=== PATIENT | male | born 1950 | race Caucasian/White ===

== ENCOUNTER 2017-09-10 12:41 | Emergency (ER) | payer MEDICARE ==
[2017-09-10 13:44] VITALS: BP 121/64
--- NOTE | 2017-09-10 13:55 | UC ---
Respiratory Complaint HPI - HPI Summary HPI Summary: COUGH X 1 DAY + FEVER, CHILLS, BODY ACHES, SORE THROAT NO CHEST, PAIN , NO SOB + FOR INFLUENZA - History of Current Complaint Chief Complaint: UCGeneralIllness Stated Complaint: FLU EXPOSURE Time Seen by Provider: 09/10/17 13:43 Hx Obtained From: Patient Onset/Duration: Gradual Onset, Lasting Days - 1, Still Present Timing: Constant Severity Initially: Moderate Severity Currently: Moderate Pain Intensity: 8 Character: Cough: Nonproductive Aggravating Factors: Exertion, Deep Breaths Alleviating Factors: Nothing Associated Signs And Symptoms: Positive: Fever, Chills, URI, Nasal Congestion. Negative: Dyspnea, Wheezing, Hemoptysis, Dizziness, Calf Pain, Calf Swelling, Edema - Allergies/Home Medications Allergies/Adverse Reactions: Allergies Allergy/AdvReac Type Severity Reaction Status Date / Time No Known Allergies Allergy Verified 12/07/13 17:17 Home Medications: Home Medications Amitriptyline HCl 75 mg PO 09/10/17 [History] Aspirin [Aspirin EC] 162 09/10/17 [History] Carvedilol [Coreg] 3.125 mg PO 09/10/17 [History] Furosemide 09/10/17 [History] Lisinopril [Lisinopril 2.5 MG-] 09/10/17 [History] Lovastatin [Altoprev] 10 09/10/17 [History] Spironolactone 09/10/17 [History] Tamsulosin HCl [Flomax] 0.4 mg PO 09/10/17 [History] PMH/Surg Hx/FS Hx/Imm Hx Cardiovascular History: Cardiac Disease, Hypertension, Congestive Heart Failure - Surgical History Surgical History: Yes Surgery Procedure, Year, and Place: right eye - laser surgery for torn retina - lost vision. major back surgery - for ruptured discs. 2 hernia repairs 1985. right knee surgery x2 - Family History Known Family History: Positive: Hypertension - Social History Alcohol Use: Rare Substance Use Type: None Smoking Status (MU): Former Smoker Type: Cigarettes Amount Used/How Often: quit 15 years ago When Did the Patient Quit Smoking/Using Tobacco: 1999 Review of Systems Constitutional: Fever, Chills, Fatigue Skin: Negative Eyes: Negative ENT: Sore Throat, Nasal Discharge Respiratory: Cough Cardiovascular: Negative Gastrointestinal: Negative Genitourinary: Frequency Motor: Negative Neurovascular: Negative Is Patient Immunocompromised?: No All Other Systems Reviewed And Are Negative: Yes Physical Exam Triage Information Reviewed: Yes Appearance: Well-Appearing, No Pain Distress, Well-Nourished Vital Signs: Initial Vital Signs Temp 99.2 F 09/10/17 13:36 Pulse 116 09/10/17 13:36 Resp 22 09/10/17 13:36 BP 121/64 09/10/17 13:36 Pulse Ox 98 09/10/17 13:36 Vital Signs Reviewed: Yes Eyes: Positive: Conjunctiva Clear ENT Exam: Normal ENT: Positive: Normal ENT inspection, Hearing grossly normal, Pharynx normal, Pharyngeal erythema Neck: Positive: Supple, Nontender, No Lymphadenopathy Respiratory: Positive: Chest non-tender, Lungs clear, Normal breath sounds Cardiovascular: Positive: No Murmur, Tachycardia Abdomen Description: Positive: Nontender, Soft. Negative: CVA Tenderness (R), CVA Tenderness (L), Distended, Guarding Bowel Sounds: Positive: Present Skin Exam: Normal UC Diagnostic Evaluation - Laboratory O2 Sat by Pulse Oximetry: 98 Respiratory Course/Dx - Differential Dx/Diagnosis Provider Diagnoses: INFLUENZA Discharge - Discharge Plan Condition: Good Disposition: HOME Prescriptions: Oseltamivir CAP* [Tamiflu CAP*] 75 mg PO BID #10 cap Patient Education Materials: Influenza (ED) Referrals: Avery Mays MD [Primary Care Provider] - 3 Days
== END 2017-09-10 14:01 | disposition home or self-care (01) ==
LOC: UCCORT 12:41
DX: J11.1 Influenza due to unidentified influenza virus with other respiratory manifestations (principal); Z20.828 Contact with and (suspected) exposure to other viral communicable diseases; I51.9 Heart disease, unspecified; I10 Essential (primary) hypertension; I50.9 Heart failure, unspecified; Z87.891 Personal history of nicotine dependence
CPT/HCPCS: 99212; G0463

== ENCOUNTER 2019-04-02 10:45 | Emergency (ER) | payer MEDICARE, OTHER ==
--- NOTE | 2019-04-02 11:16 | ED ---
Complex/Multi-Sys Presentation - HPI Summary HPI Summary: This patient is a 69 year old M presenting to [facility] accompanied by with a chief complaint of right shoulder pain that radiates to right arm and back, weight loss and weakness since November 2018. Patient states that he had a prostate operation in November and ever since he has been feeling off. Patient also states that on 03/30/19 he was seen by Dr. Mays for routine blood work. Patient states that the results came back abnormal as a result Dr. Mays placed him on antibiotics for a UTI. The patient rates the pain 8/10 in severity. Symptoms aggravated by nothing. Symptoms alleviated by Tylenol. Patient reports weakness , melena (due to iron pills) and back pain. Patient denies dizziness, chest pain , nausea, SOB, fever and dysuria. Allergies Allergy/AdvReac Type Severity Reaction Status Date / Time No Known Allergies Allergy Verified 12/07/13 17:17 Home Medications Medication Instructions Recorded Confirmed Type Tamsulosin CAP* [Flomax CAP*] 0.4 mg PO DAILY 08/13/13 09/10/17 History glipiZIDE TAB* [Glucotrol TAB*] 10 mg PO BID 08/13/13 09/10/17 History Multivitamin [Multi-Vitamin] 1 tab PO DAILY 12/07/13 09/10/17 History metFORMIN* [Glucophage*] 500 mg PO DAILY 12/07/13 09/10/17 History Amitriptyline HCl 75 mg PO 09/10/17 History Aspirin [Aspirin EC] 162 09/10/17 History Carvedilol [Coreg] 3.125 mg PO 09/10/17 History Furosemide 09/10/17 History Lisinopril [Lisinopril 2.5 MG-] 09/10/17 History Lovastatin [Altoprev] 10 09/10/17 History Oseltamivir CAP* [Tamiflu CAP*] 75 mg PO BID #10 cap 09/10/17 Rx Spironolactone 09/10/17 History Tamsulosin HCl [Flomax] 0.4 mg PO 09/10/17 History - History Of Current Complaint Chief Complaint: EDWeakness Time Seen by Provider: 04/02/19 10:57 Hx Obtained From: Patient, Family/Bi Data Modeler - Onset/Duration: Lasting Weeks - 03/12/19 Timing: Constant Severity Initially: Mild Character: Sharp Alleviating Factor(s): Tylenol helps with pain. Associated Signs And Symptoms: Positive: Weakness, Back Pain, Melena - due to iron pills. Negative: Dizziness, SOB, Chest Pain, Nausea, Diarrhea, Dysuria, Fever - Allergies/Home Medications Allergies/Adverse Reactions: Allergies Allergy/AdvReac Type Severity Reaction Status Date / Time amoxicillin Allergy Rash Verified 04/02/19 13:58 Home Medications: Home Medications Al Hydrox/Mg Hydrox/Jacqueline BULK* [Mylanta - BULK BOT*] 1 shin PO DAILY PRN [History Confirmed 04/02/19] Carvedilol TAB* [Coreg TAB*] 6.25 mg PO BID 04/02/19 [History Confirmed 04/02/19 ] Ferrous Gluconate TAB* [Fergon TAB*] 325 mg PO BID 04/02/19 [History Confirmed 04/02/19] PMH/Surg Hx/FS Hx/Imm Hx Endocrine/Hematology History: Reports: Hx Diabetes Denies: Hx Thyroid Disease Cardiovascular History: Reports: Hx Hypertension, Other Cardiovascular Problems/ Disorders - RIGHT BUNDLE BLOCK Respiratory History: Denies: Hx Asthma, Hx Chronic Obstructive Pulmonary Disease (COPD) GI History: Denies: Hx Ulcer Neurological History: Reports: Other Neuro Impairments/Disorders - Cancer History Cancer Type, Location and Year: lymphoma - chemo - Surgical History Surgery Procedure, Year, and Place: right eye - laser surgery for torn retina - lost vision. major back surgery - for ruptured discs. 2 hernia repairs 1985. right knee surgery x2 - Immunization History Date of Tetanus Vaccine: <10 yrs Date of Influenza Vaccine: None Infectious Disease History: No Infectious Disease History: Denies: Hx Clostridium Difficile, Hx Hepatitis, Hx Human Immunodeficiency Virus (HIV), Hx of Known/Suspected MRSA, Hx Shingles, Hx Tuberculosis, Traveled Outside the [place] in Last 30 Days - Family History Known Family History: Positive: Hypertension - Social History Alcohol Use: None Hx Substance Use: No Substance Use Type: Reports: None Hx Tobacco Use: Yes Smoking Status (MU): Former Smoker Type: Cigarettes Amount Used/How Often: quit 15 years ago Review of Systems Negative: Fever, Chills Negative: Chest Pain Negative: Shortness Of Breath Positive: Other - melena. Negative: Abdominal Pain, Vomiting, Nausea Positive: Other - back pain, left shoulder pain, left arm pain Positive: Weakness All Other Systems Reviewed And Are Negative: Yes Physical Exam - Summary Physical Exam Summary: Constitutional: Well-developed, Well-nourished, Alert. (-) Distressed Skin: Warm, Dry HENT: Normocephalic; Atraumatic Eyes: Conjunctiva normal Neck: Musculoskeletal ROM normal neck. (-) JVD, (-) Stridor, (-) Tracheal deviation Cardio: Rhythm mildly elevated, rate mildly elevated , Heart sounds normal; Intact distal pulses; The pedal pulses are 2+ and symmetric. Radial pulses are 2 + and symmetric. (-) Murmur Pulmonary/Chest wall: Effort normal. (-) Respiratory distress, (-) Wheezes, (-) Rales Abd: Soft, (-) tenderness, (-) Distension, (-) Guarding, (-) Rebound Musculoskeletal: (-) Edema Lymph: (-) Cervical adenopathy Neuro: Alert, Oriented x3, ptosis on right side Psych: Mood and affect Normal Foot Exam: no wounds Triage Information Reviewed: Yes Vital Signs On Initial Exam: Initial Vitals Temp Pulse Resp BP Pulse Ox 96.5 F 106 20 99/74 98 04/02/19 10:49 04/02/19 10:49 04/02/19 10:49 04/02/19 10:49 04/02/19 10:49 Vital Signs Reviewed: Yes Procedures - Sedation Patient Received Moderate/Deep Sedation with Procedure: No Diagnostics - Vital Signs Vital Signs Temp Pulse Resp BP Pulse Ox 04/02/19 10:49 96.5 F 106 20 99/74 98 - Laboratory Result Diagrams: 04/02/19 11:22 04/02/19 11:22 Lab Statement: Any lab studies that have been ordered have been reviewed, and results considered in the medical decision making process. - Radiology Chest Xray Radiology Interpretation Completed By: Radiologist Summary of Radiographic Findings: Chest Xray reveals, per radiologist, IMPRESSION: Stigmata of obstructive lung disease. No acute pulmonary or cardiac process evident. ED Physician has reviewed this report. - CT Abdomen/Pelvis Ct CT Interpretation Completed By: Radiologist Summary of CT Findings: Abdomen/Pelvis CT reveals, per radiologist,IMPRESSION: ATHEROSCLEROSIS. CHOLELITHIASIS. ENLARGED PROSTATE. NO HYDRONEPHROSIS OR NEPHROLITHIASIS. ED Physician has reviewed this report. - EKG 1326 Cardiac Rate: NL - 99 EKG Rhythm: Sinus Rhythm Summary of EKG Findings: EKG reveals SR with a right bundle branch block. - Additional Comments Diagnostic Additional Comments: Stool Occult Blood- NEGATIVE Complex Multi-Symp Course/Dx Course Of Treatment: This patient is a 69 year old M presenting to [facility] accompanied by with a chief complaint of right shoulder pain that radiates to right arm and back, weight loss and weakness since November 2018. EKG reveals SR with a right bundle branch block. Chest Xray reveals, per radiologist, IMPRESSION: Stigmata of obstructive lung disease. No acute pulmonary or cardiac process evident. ED Physician has reviewed this report. Abdomen/Pelvis CT reveals, per radiologist, IMPRESSION: ATHEROSCLEROSIS. CHOLELITHIASIS. ENLARGED PROSTATE. NO HYDRONEPHROSIS OR NEPHROLITHIASIS. ED Physician has reviewed this report. Stool Occult Blood- NEGATIVE. Test results with no significant abnormalities except for WBC 15.9, RBC 3.12, Hgb 8.9, Hct 28, Plt Count 711, MPV 6.4, INR 1.38, Sodium 134, Potassium 5.2, Chloride 100, BUN 43, Creatinine 1.74, BUN/Creatinine Ratio 24.7, Glucose 226, Globulin 4.5, Albumin/Globulin Ratio 0.7. Dr. Orellana reviewed patients medical reports from [place] it appears that his baseline is 1.6 creatinine. Patients Hgb on march 30, 2019 was 9.3, March 18, 2019 was 10.0, March 13, 2019 was 10.4, December 16, 2018 was 11.3. In the ED course the patient was given Cefepime 2 gm, Ciprofloxacin 400 mg , Piperacillin 3.375 gm. Patient will be admitted to the hospital. Patient is agreeable with this plan. The hospitalist evaluated the patient, however he is refusing admission. His white blood cell count of 16,000, he is tachycardic and hypotensive. He meets sepsis criteria. The source of sepsis is as yet unclear, however the differential includes endocarditis, spinal epidural abscess at some level, possibly cervical given his pain and tingling and numbness in the arms and legs is comes and goes, prostatitis which is unlikely based on physical exam and no prostatic tenderness or bogginess., Bacteremia, urinary tract infection which is partially treated. I did recommended the patient be admitted to the hospital for further evaluation, including MRI scans , echocardiogram. Also empiric antibiotics. I offered also to not admit him and just get the MRIs done in the emergency department, he declined this. He understands that outpatient workup for sepsis is inappropriate, and can lead to disability and . He also understands that the antibiotics I am prescribing are ineffective at treating sepsis.. He is encouraged to return to the emergency department should he change his mind. Hospital-based treatment. He had decision-making capacity at the time of signing AGAINST MEDICAL ADVICE paperwork, and his was present for all discussions. - Diagnoses Provider Diagnoses: Sepsis - Physician Notifications Discussed Care Of Patient With: Marita Heller - Hospitalist Time Discussed With Above Provider: 14:04 Instructed by Provider To: Admit As Inpatient - Dr. Heller accepts patient for admission Discharge ED - Sign-Out/Discharge Documenting (check all that apply): Patient Departure Patient Received Moderate/Deep Sedation with Procedure: No - Discharge Plan Condition: Stable Disposition: AGAINST MEDICAL ADVICE Prescriptions: Ciprofloxacin TAB* [Cipro 500 MG TAB*] 500 mg PO BID #20 tab Referrals: Avery Mays MD [Primary Care Provider] - - Billing Disposition and Condition Condition: STABLE Disposition: Against Medical Advice - Attestation Statements Document Initiated by Scribe: Yes Documenting Scribe: Rachel Loco Provider For Whom Scribe is Documenting (Include Credential): Dr. Michael Orellana MD Scribe Attestation: Rachel Fuentes scribed for Dr. Michael Orelalna MD on 04/21/19 at 1248. Scribe Documentation Reviewed: Yes Provider Attestation: The documentation as recorded by the cameronibRachel tellez accurately reflects the service I personally performed and the decisions made by me, Dr. Michael Orellana MD Status of Scribe Document: Viewed
[2019-04-02 11:59] LABS: Activated Partial Thrombo Time 37.1 seconds (26.0-38.0); Hematocrit 28 % (42-52); Hemoglobin 8.9 g/dL (14.0-18.0); INR 1.38 (0.82-1.09); Mean Corpuscular HGB Conc 32 g/dL (31-36); Mean Corpuscular Hemoglobin 29 pg (27-31); Mean Corpuscular Volume 88 fL (80-94); Mean Platelet Volume 6.4 fL (7.4-10.4); Platelet Count 711 10^3/uL (150-450); Red Blood Count 3.12 10^6 /uL (4.18-5.48); Red Cell Distribution Width 15 % (10-15); White Blood Count 15.9 10^3/uL (3.5-10.8)
[2019-04-02 12:14] LABS: Albumin 3.3 g/dL (3.2-5.2); Albumin/Globulin Ratio 0.7 (1-3); BUN/Creatinine Ratio 24.7 (8-20); Calcium 9.1 mg/dL (8.6-10.3); EGFR African American 47.3 (>60); EGFR Non-African American 39.1 (>60); Globulin 4.5 g/dL (2-4); Potassium 5.2 mmol/L (3.5-5.0); Total Bilirubin 0.7 mg/dL (0.2-1.0); Total Protein 7.8 g/dL (6.4-8.9)
[2019-04-02 12:16] LABS: Troponin I 0.01 ng/mL (<0.04)
[2019-04-02 12:48] LABS: ABS Basophils 0.1 10^3/ul (0-0.2); ABS Eosinophils 0.5 10^3/ul (0-0.6); ABS Lymphocytes 1.3 10^3/ul (1.0-4.8); ABS Monocytes 0.9 10^3/ul (0-0.8); ABS Neutrophils 13.3 10^3/ul (1.5-7.7)
[2019-04-02] MEDS ORDERED: NS 0.9% 1000 ML** 3,000 ML IV ONE (12:50)
[2019-04-02 13:47] LABS: Urine Appearance Clear; Urine Bilirubin Negative (Negative); Urine Blood Negative (Negative); Urine Color Yellow; Urine Glucose Negative (Negative); Urine Ketones Negative (Negative); Urine Nitrite Negative (Negative); Urine Protein Negative (Negative); Urine Specific Gravity 1.013 (1.010-1.030); Urine Urobilinogen Negative (Negative)
[2019-04-02] MEDS: Piperacillin/Tazobac ADVAN(*) 3.375 GM in NS 0.9% 100 ML* 100 ML IVPB ONE ×2 (13:51→13:58)
[2019-04-02] MEDS ORDERED: Cefepime 2 GM in Dextrose(*) 2 GM/50 ML BAG IV ONE (13:54)
[2019-04-02] MEDS ORDERED: Ciprofloxacin 400MG IVPREMIX(* 400 MG/200 ML BAG IVPB ONE (13:55)
[2019-04-02 15:25] LABS: C Reactive Protein 229.84 mg/L (<8.01)
[2019-04-02 15:36] VITALS: BP 105/58
--- NOTE | 2019-04-02 18:03 | CONS ---
CONSULTATION REPORT: DATE OF CONSULT: 04/02/19 ATTENDING PHYSICIAN: Dr. Heller. REASON FOR CONSULT: Right shoulder pain. REQUESTING PROVIDER: Dr. Orellana. 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 For the past 3 weeks, the patient has had progressive pain through bilateral shoulders though worse in the right through the arms and radiating down both his legs with progressive weakness with walking, diagnosed 3 weeks ago with UTI from his primary care physician, was on cefepime for 18 days. He had also had bilateral x-rays of his shoulders that were negative for any acute findings. The pain he described as radiating down both his arms, worse on the right, described as stabbing, no burning or numbness or tingling. Pain was intermittent, not worse at any particular time of the day, noted good relief while using Tylenol about every 4 hours. Denied any headaches, fevers, chills, chest pain, shortness of breath, abdominal pain, nausea, vomiting or issues with bowel or bladder. In the emergency room, the patient received a liter of IV fluids as well as cefepime 2 g IV, ciprofloxacin 400 mg IV and Zosyn 3.375 g IV. PAST MEDICAL HISTORY: Includes diabetes, hypertension, right bundle branch block, lymphoma, BPH, carpal tunnel, bilateral lower extremity neuropathy, herniated T11- T12 disks. PAST SURGICAL HISTORY: Includes L4 partial discectomy and decompressive T11 and T12 surgery, cataract surgery in the left eye, and TURP in 2019. CURRENT MEDICATIONS: He is on: 1. Mylanta 1 suspension p.o. daily p.r.n. 2. Ferrous gluconate 325 mg p.o. b.i.d. 3. Aspirin 81 mg p.o. daily. 4. Spironolactone 25 mg p.o. daily. 5. Furosemide 40 mg p.o. daily. 6. Metformin 2000 mg p.o. b.i.d. 7. Lovastatin 10 mg p.o. daily. 8. Carvedilol 6.25 mg p.o. b.i.d. 9. Lisinopril 2.5 mg p.o. daily. 10. Glipizide 10 mg p.o. b.i.d. 11. Tamsulosin 0.4 mg p.o. daily. 12. Amitriptyline 75 mg p.o. daily. ALLERGIES: To AMOXICILLIN. FAMILY HISTORY: No information volunteered. SOCIAL HISTORY: The patient smoked as a teenager but then quit. Denies any EtOH or other recreational drug use. He is . REVIEW OF SYSTEMS: Constitutional: Again no fevers, no anorexia, no chills. Cardiac: No chest pain. Bilateral lower extremity edema. Respiratory: No cough. No hemoptysis. No shortness of breath. GI: No nausea or vomiting, no diarrhea, no abdominal pain. Neuro: No focal weakness, numbness, and tingling to bilateral lower extremities. 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 ENT: No troubles chewing or swallowing. Musculoskeletal : Radiating pain starting from bilateral shoulders down into hands, worse on the right side. Weakness to bilateral lower extremities. Skin: No rashes, lesions, or open areas appreciated. Psych: No psychosis or anxiety or depression noted. PHYSICAL EXAM: Vital Signs: 111/67, 102 heart rate, 96.5 temp, 19 resps, 94% oxygen on room air. Constitutional: This is an alert, pleasant, well-groomed older gentleman. Eyes: Conjunctivae pink and moist on the left side; right side, right eye is clouded with ptosis. ENT: Oropharynx clear, mucous membranes moist. Lymphatics: No cervical lymphadenopathy noted. Cardiac: S1, S2. Heart rate regular. No murmurs, gallops or rubs appreciated. +1 lower extremity edema bilaterally, nonpitting. Respiratory: No accessory muscle use. Lung sounds are clear to auscultation bilaterally throughout. Abdomen: Soft, nontender, nondistended with normoactive bowel sounds x4. Musculoskeletal : No clubbing or cyanosis. No abnormalities. Full range of motion. No tenderness to the right shoulder or throughout the spine when palpated. Neuro: No focal deficits appreciated. Moves all extremities. Psychiatric: Alert and oriented x3, organized thought process. DIAGNOSTIC STUDIES/LAB DATA: EKG showed sinus rhythm with right bundle branch block. Chest x-ray had stigmata of obstructive lung disease but no acute findings. Abdomen and pelvis CT without contrast showed cholelithiasis with no inflammatory changes, calcified atherosclerotic disease of abdominal aorta, right inguinal hernia and diffuse osteopenia. Labs: White blood cell count 15.9, red blood cell count 3.12, hemoglobin 8.9, hematocrit 28, platelets 711. Absolute neutrophils 13.3, absolute monocytes 0.9. INR 1.38. Chemistries: Sodium 134, potassium 5.2, chloride 100, BUN 43, creatinine 1.74, BUN and creatinine ratio 24.7, glucose 226, lactic acid 2.0 and urine showed no evidence of infection. ASSESSMENT AND PLAN: My impression again, this is a 69-year-old male with a past medical history significant for the hypertension, right bundle branch block , lymphoma and back surgeries, presented to the emergency room today with right shoulder pain as well as progressive weakness. Diagnostic studies showed no evidence of infectious disease, no urinary tract infection found, no clear evidence of source of infection though the patient continues to be tachycardic with low blood pressure and no fevers. The patient decided to not stay for further evaluation, wants to go AMA. Plan for hyperkalemia and low blood pressure is to hold spironolactone and follow up with flat lock machine operator within the next week or two. Recommended the patient to stay overnight for observation resource. Disposition: Recommend admit under observation, though patient wishes to leave AMA. Condition guarded. Thank you for allowing me to participate in the care of this patient. We have given our recommendations to Dr. Orellana. [id number]/[facility] #: [id number] URSULA
--- NOTE | 2019-04-03 08:36 | PN ---
Progress Note - Progress Note Date of Service: 04/02/19 Note: Lyme DUNIA test equivocal Will send for confirmatory testing
== END 2019-04-02 16:15 | disposition left against medical advice (07) ==
LOC: ED 10:45
DX: A41.9 Sepsis, unspecified organism (principal); I70.0 Atherosclerosis of aorta; K80.20 Calculus of gallbladder without cholecystitis without obstruction; E11.9 Type 2 diabetes mellitus without complications; I10 Essential (primary) hypertension; I45.10 Unspecified right bundle-branch block; N40.0 Benign prostatic hyperplasia without lower urinary tract symptoms; Z85.72 Personal history of non-Hodgkin lymphomas; Z87.891 Personal history of nicotine dependence; Z79.82 Long term (current) use of aspirin; Z79.84 Long term (current) use of oral hypoglycemic drugs; Z79.899 Other long term (current) drug therapy; Z88.1 Allergy status to other antibiotic agents
CPT/HCPCS: 36415; 71045; 74176; 80053; 81003; 82272; 83605; 84484; 85025; 85610; 85730; 86140; 86617; 86618; 87040; 93005; 96361; 96365; 96366; 99283; J0744; J2543

== ENCOUNTER 2019-08-15 09:06 | Emergency (ER) | payer OTHER ==
--- OUTSIDE RECORDS SUMMARY | 2019-08-15 09:11 | XMS REPORT | Continuity of Care Document ---
:1950 External Reference #:[id number] Author Name Scott Jane MD (transmitted by agent of provider Amina Slaughter) Address [address] [place] [address] Care Team Providers Name Role Phone Avery Mays MD - Emergency Care Team Information Environmental Services Assistant [phone] Medicine Problems Description No Information Available Social History Type Date Description Comments Sex Unknown Tobacco Use Start: Unknown End: Unknown Patient is a former smoker Smoking Status Reviewed: 07/22/19 Patient is a former smoker Allergies, Adverse Reactions, Alerts Description No Known Drug Allergies Medications Active Medications SIG Qnty Indications Ordering Date Provider Prednisone Take three tabs 120tabs D89.0 Scott Jane, 06/01/2019 5mg Tablets by mouth daily for two weeks, take two tabs by mouth daily until follow-up Calcium Citrate + D3 take two tabs by 180tabs D89.0 Scott Jane, 2018 Maximum mouth twice MD [id number] daily Tablets Acetaminophen Extra 2 tabs by mouth Unknown Strength every 8 hours as 500mg Tablets needed for pain or fever Aspirin Ec Low Dose 1 by mouth every Unknown 81mg day Tablets Amitriptyline HCL 1 tab by mouth Unknown 75mg every night at Tablets bedtime Carvedilol 1 by mouth twice Unknown 3.125mg a day Tablets Furosemide 1 by mouth twice Unknown 40mg Tablets a day Glipizide 1 by mouth every Unknown 10mg Tablets day in the morning Lisinopril 1 by mouth every Unknown 2.5mg Tablets day Lovastatin Unknown 10mg Tablets Metformin HCL take one tablet Unknown 1000mg by mouth twice a Tablets day Mylanta Maximum as needed Unknown Strength [id number] Suspension Tamsulosin HCL 1 by mouth every Unknown 0.4mg day Capsules Prednisone 20MG. Unknown Immunizations Description No Information Available Vital Signs Date Vital Result Comment 07/22/2019 8:05am Height 71 inches 5'11" Weight 260.00 lb Heart Rate 102 /min BP Systolic 140 mmHg BP Diastolic 82 mmHg Body Temperature 96.8 F Pain Level 1 O2 % BldC Oximetry 94 % BMI (Body Mass Index) 36.3 kg/m2 06/01/2019 8:59am Height 71 inches 5'11" Weight 249.00 lb Heart Rate 87 /min BP Systolic 119 mmHg BP Diastolic 63 mmHg Body Temperature 96.9 F Pain Level 0 O2 % BldC Oximetry 96 % BMI (Body Mass Index) 34.7 kg/m2 Results Test Acquired Date Facility Test Result H/L Range Note Quantifero 06/03/2019 [facility] QuantiferonTb Gold Negative Negative 1 n-TB Gold [address] [place] [address] [phone] TB1 Ag minus Nil Result -0.02 IU/mL TB2 Ag minus Nil Result 0.00 IU/mL Mitogen minus Nil Result 14.71 IU/mL Nil Result 0.04 IU/mL Laboratory test 06/03/2019 [facility] Hepatitis B Negative Negative [address] [place] [address] [phone] Hepatitis B Surface Ag Nonreactive Nonreactive Hepatitis C Antibody 06/03/2019 [facility] HCV Index 0.09 s/c [address] [place] [address] [phone] Hepatitis C Antibody Negative Negative Laboratory test 06/03/2019 [facility] Erythrocyte Sed 36 mm/Hr High 0-[address] [place] [address] [phone] C Reactive Protein 3.54 mg/L Normal <8.01 Hla B27 06/03/2019 [facility] Hla B27 Negative [address] [place] [address] [phone] Hla B27 Interp See Comment 4 Laboratory test 06/03/2019 [facility] Cyclic Citrullinated < 15.6 U [address] [employer] [place] [id number] [phone] 1 M. tuberculosis infection NOT likely 2 Test Performed by: [facility] [place] [address] Procurement Specialist: Nicola Nixon M.D. Ph.D.; CLIA# [id number] 3 REFERENCE VALUE Not Applicable 4 RESULT: HLA-B27 antigen was not detected. ADDITIONAL INFORMATION Method: Flow Cytometry Test Performed by: [facility] [place] [address] Procurement Specialist: Nicola Nixon M.D. Ph.D.; CLIA# [id number] 5 REFERENCE VALUE <20.0 (Negative) Test Performed by: [facility] [place] [address] Procurement Specialist: Nicola Nixon M.D. 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 Ccmob M25.551 Pain in right hip M25.552 Pain in left hip M54.2 Cervicalgia M54.5 Low back pain Office Visit 04/02/2019 8:53a [facility] Mary Kamara, M25.511 Pain in right Assoc,pc [employer] shoulder Hospitalists R53.1 Weakness Assessments Date Code Description Provider 07/22/2019 D64.9 Anemia, unspecified Scott Jane MD 07/22/2019 R70.0 Elevated erythrocyte sedimentation rate Scott Jane MD 07/22/2019 M54.5 Low back pain Scott Jane MD 07/22/2019 M54.2 Cervicalgia Scott Jane MD 07/22/2019 L40.8 Other psoriasis Scott Jane MD 06/01/2019 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 06/01/2019 M25.551 Pain in right hip Scott Jane MD 06/01/2019 M25.552 Pain in left hip Scott Jane MD 06/01/2019 M54.2 Cervicalgia Scott Jane MD 06/01/2019 M54.5 Low back pain Scott Jane MD 04/02/2019 M25.511 Pain in right shoulder Mary Kamara, LINDSEY 04/02/2019 R53.1 Weakness Mary Kamara, LINDSEY Plan of Treatment Future Appointment(s):09/02/2019 8:30 am - Scott Jane MD at [facility]07/22/2019 - Scott Jane, MDD64.9 Anemia, unspecifiedFollow up:6 wyivbD46.0 Elevated erythrocyte sedimentation rateM54.5 Low back painM54.2 VzuuzddqvhjP22.8 Other psoriasis Functional Status Description No Information Available Mental Status Description No Information Available Referrals Description No Information Available
--- OUTSIDE RECORDS SUMMARY | 2019-08-15 09:11 | XMS REPORT | Continuity of Care Document ---
:1950 External Reference #:[id number] Author Name Scott Jane MD (transmitted by agent of provider Amina Slaughter) Address [address] [place] [address] Care Team Providers Name Role Phone Avery Mays MD - Emergency Care Team Information Road Oiling Truck Driver [phone] Medicine Problems Description No Information Available Social History Type Date Description Comments Sex Unknown Tobacco Use Start: Unknown End: Unknown Patient is a former smoker Smoking Status Reviewed: 08/12/19 Patient is a former smoker Allergies, Adverse Reactions, Alerts Description No Known Drug Allergies Medications Active Medications SIG Qnty Indications Ordering Date Provider Prednisone Two tabs by mouth 60tabs L40.50 Scott Jane, 08/12/2019 5mg daily for two MD Tablets weeks, one tab by mouth daily for two weeks Methotrexate Sodium take three tabs by 72tabs L40.50 Scott Jane, 08/12 mouth on week one MD 2.5mg Tablets and two, then starting on week 2 take 6 tabs by mouth weekly Folic Acid take one tab by 90tabs L40.50 Scott Jane, 08/12/2019 1mg mouth daily except MD Tablets the day you take methotrexate Prednisone Take three tabs by 120tabs D89.0 Scott Jane, 06/01/2019 5mg mouth daily for two MD Tablets weeks, take two tabs by mouth daily until follow-up Calcium Citrate + D3 take two tabs by 180tabs D89.0 Scott Jane, 2018 Maximum mouth twice daily MD [id number] Tablets Prednisone 20MG. Unknown Tamsulosin HCL 1 by mouth every Unknown 0.4mg day Capsules Mylanta Maximum as needed Unknown Strength [id number]/[id number] Suspension Metformin HCL take one tablet by Unknown 1000mg mouth twice a day Tablets Lovastatin Unknown 10mg Tablets Lisinopril 1 by mouth every Unknown 2.5mg day Tablets Glipizide 1 by mouth every Unknown 10mg day in the morning Tablets Furosemide 1 by mouth twice a Unknown 40mg day Tablets Carvedilol 1 by mouth twice a Unknown 3.125mg day Tablets Amitriptyline HCL 1 tab by mouth Unknown every night at 75mg Tablets bedtime Aspirin Ec Low Dose 1 by mouth every Unknown day 81mg Tablets DR Acetaminophen Extra 2 tabs by mouth Unknown Strength every 8 hours as 500mg needed for pain or Tablets fever Immunizations Description No Information Available Vital Signs Date Vital Result Comment 08/12/2019 8:02am Height 71 inches 5'11" Weight 253.00 lb Heart Rate 106 /min BP Systolic 134 mmHg BP Diastolic 78 mmHg Body Temperature 96.9 F Pain Level 10 O2 % BldC Oximetry 96 % BMI (Body Mass Index) 35.3 kg/m2 07/22/2019 8:05am Height 71 inches 5'11" Weight 260.00 lb Heart Rate 102 /min BP Systolic 140 mmHg BP Diastolic 82 mmHg Body Temperature 96.8 F Pain Level 1 O2 % BldC Oximetry 94 % BMI (Body Mass Index) 36.3 kg/m2 Results Test Acquired Date Facility Test Result H/L Range Note Quantifero 06/03/2019 [facility] QuantiferonTb Gold Negative Negative 1 n-TB [place] [address] [phone] TB1 Ag minus Nil Result -0.02 IU/mL TB2 Ag minus Nil Result 0.00 IU/mL Mitogen minus Nil Result 14.71 IU/mL Nil Result 0.04 IU/mL Laboratory test 06/03/2019 [facility] Hepatitis B Negative Negative [address] [place] [address] [phone] Hepatitis B Surface Ag Nonreactive Nonreactive Hepatitis C Antibody 06/03/2019 [facility] HCV Index 0.09 s/c [address] [place] [address] [phone] Hepatitis C Antibody Negative Negative Laboratory test 06/03/2019 [facility] Erythrocyte Sed 36 mm/Hr High 0-[address] [place] [address] [phone] C Reactive Protein 3.54 mg/L Normal <8.01 Hla B27 06/03/2019 [facility] Hla B27 Negative [address] [place] [address] [phone] Hla B27 Interp See Comment 4 Laboratory test 06/03/2019 [facility] Cyclic Citrullinated < 15.6 U 5 finding [address] [facility] [place] [address] [phone] 1 M. tuberculosis infection NOT likely 2 Test Performed by: [facility] [place] [address] Accounting Methods Analyst: Nicola Nixon M.D. Ph.D.; CLIA# [id number] 3 REFERENCE VALUE Not Applicable 4 RESULT: HLA-B27 antigen was not detected. ADDITIONAL INFORMATION Method: Flow Cytometry Test Performed by: [facility] [place] [address] Accounting Methods Analyst: Nicola Nixon M.D. Ph.D.; CLIA# [id number] 5 REFERENCE VALUE <20.0 (Negative) Test Performed by: [facility] [place] [address] Accounting Methods Analyst: Nicola Nixon M.D. Ph.D.; CLIA# [id number] Procedures Description No Information Available Medical Devices Description No Information Available Encounters Type Date Location Provider Dx Diagnosis Office Visit 07/22/2019 Rheumatology Scott Jane, D64.9 Anemia, 8:00a [facility] [place] - unspecified Ccmob R70.0 Elevated erythrocyte sedimentation rate M54.5 Low back pain M54.2 Cervicalgia L40.8 Other psoriasis Office 06/01/2019 Rheumatology Scott D89.0 Polyclonal Visit 9:00a [facility] Jane MD hypergammaglobulinemia - Ccmob M25.551 Pain in right hip M25.552 Pain in left hip M54.2 Cervicalgia M54.5 Low back pain Office Visit 04/02/2019 8:53a [facility] Mary Kamara, M25.511 Pain in right Assoc,pc [employer] shoulder Hospitalists R53.1 Weakness Assessments Date Code Description Provider 08/12/2019 L40.50 Arthropathic psoriasis, unspecified Scott Jane MD 08/12/2019 L40.8 Other psoriasis Scott Jane MD 08/12/2019 D64.9 Anemia, unspecified Scott Jane MD 08/12/2019 R70.0 Elevated erythrocyte sedimentation rate Scott Jane MD 07/22/2019 D64.9 Anemia, unspecified Scott Jane MD [...] Mary Kamara, LINDSEY Plan of Treatment Future Appointment(s):09/18/2019 8:30 am - Scott [facility] Scott Jane MDL40.50 Arthropathic psoriasis, unspecifiedNew Medication:Prednisone 5 mg - Two tabs by mouth daily for two weeks, one tab by mouth daily for two weeksMethotrexate Sodium 2.5 mg - take three tabs by mouth on week one and two, then starting on week 2 take 6 tabs by mouth weeklyFolic Acid 1 mg - take one tab by mouth daily except the day you take methotrexateFollow up:1 xanmuW95.8 Other nklapbxzjK62.9 Anemia, gvsdxwynqvfZ40.0 Elevated erythrocyte sedimentation rate Functional Status Description No Information Available Mental Status Description No Information Available Referrals Description No Information Available
[2019-08-15 10:02] VITALS: BP 137/70
--- NOTE | 2019-08-15 10:26 | UC ---
Respiratory Complaint HPI - HPI Summary HPI Summary: 69 y/o male presents to the urgent care accompany by c/o productive cough w / yellow sputum for the past 4 days. Pt states symptoms started w/ nasal congestion and moderated PND. Now unable to sleep at night due to cough. Last night the power was out for a few hrs and his house was very cold and he developed mild wheezing. Pt states chills, but denies fever, He has been taken Mucinex PO. He has PMHX of DM type II and revently Dx w/ RA about 1 months ago and on Methotraxate PO w/ prednisone PO. Now cough is productive w/ yellowish sputum. Pt use to smoke in the past. Pt denies fever, SOB, chest pain, abdominal pain, N/V/d. He has taken Mucinex PO to alleviate cough w/o any improvement. - History of Current Complaint Chief Complaint: UCGeneralIllness Stated Complaint: RESP COMPLAINT Time Seen by Provider: 08/15/19 10:03 Hx Obtained From: Patient Onset/Duration: Gradual Onset, Lasting Days - 4 days, Still Present, Worse Since - last night w/ wheezing Timing: Intermittent Episodes Severity Initially: Mild Severity Currently: Mild Pain Intensity: 1 Pain Scale Used: 0-10 Numeric Character: Cough: Productive, Sputum Description: - yellowish Aggravating Factors: Recumbent Position Alleviating Factors: OTC Meds - Mucinex Associated Signs And Symptoms: Positive: Chills, Wheezing, URI. Negative: Fever , Hemoptysis, Dizziness - Risk Factors Pulmonary Embolism Risk Factors: Negative Cardiac Risk Factors: Negative Pseudomonas Risk Factors: Negative Tuberculosis Risk Factors: Negative - Allergies/Home Medications Allergies/Adverse Reactions: Allergies Allergy/AdvReac Type Severity Reaction Status Date / Time amoxicillin Allergy Rash Verified 08/15/19 09:54 Home Medications: Home Medications Folic Acid TAB* [Folvite TAB*] 1 mg PO DAILY 08/15/19 [History Confirmed ] metHOTREXate sodium [Trexall] 2.5 mg PO DAILY 08/15/19 [History Confirmed ] predniSONE [Prednisone 5 MG TAB] 5 mg PO DAILY 08/15/19 [History Confirmed 08/15] PMH/Surg Hx/FS Hx/Imm Hx Previously Healthy: Yes Endocrine History: Diabetes, Dyslipidemia Other Endocrine History: RA Cardiovascular History: Hypertension - Surgical History Surgical History: Yes Surgery Procedure, Year, and Place: right eye - laser surgery for torn retina - lost vision. major back surgery - for ruptured discs. 2 hernia repairs 1985. right knee surgery x2 - Family History Known Family History: Positive: Hypertension, Diabetes - Social History Occupation: Retired Lives: With Family Alcohol Use: None Substance Use Type: None Smoking Status (MU): Former Smoker Type: Cigarettes Amount Used/How Often: quit 15 years ago When Did the Patient Quit Smoking/Using Tobacco: 1999 Review of Systems All Other Systems Reviewed And Are Negative: Yes Constitutional: Positive: Chills, Fatigue, Other - body aches Skin: Positive: Negative Eyes: Positive: Negative ENT: Positive: Nasal Discharge - yellowish, Sinus Congestion, Sinus Pain/ Tenderness, Other - PND Respiratory: Positive: Cough - producitve w/ yellowish sputum, Other - wheezing Cardiovascular: Positive: Negative Gastrointestinal: Positive: Negative Genitourinary: Positive: Negative Motor: Positive: Negative Neurovascular: Positive: Negative Musculoskeletal: Positive: Myalgia Neurological: Positive: Negative Psychological: Positive: Negative Is Patient Immunocompromised?: No Physical Exam - Summary Physical Exam Summary: Vital Signs Reviewed: Yes General: well developed, well nourished old male sitting in the examining table w/o any apparent distress Eyes: Positive: Conjunctiva Clear - PERRLA, EOMI, fundi grossly normal ENT: Positive: Normal ENT inspection, Hearing grossly normal, Pharynx normal, Nasal congestion - edematous and erythematous nasal mucosa, Nasal drainage - yellowish drainage, TMs normal. Negative: Tonsillar swelling, Tonsillar exudate Neck: Positive: Supple, Nontender, No Lymphadenopathy Respiratory: no orthopnea or dyspnea. Able to speak in full sentences, no retractions or accessory muscle use, no tripod position, stridor, or head bobbing. Positive breath sounds bilaterally. Mild scattered wheezing on b/L lungs, no rhonchi, no crackles or rales. Cardiovascular: Positive: RRR, No Murmur, Pulses Normal, Brisk Capillary Refill Abdomen Description: Positive: Nontender, No Organomegaly, Soft. Negative: CVA Tenderness (R), CVA Tenderness (L) Bowel Sounds: Positive: Present Musculoskeletal Exam: Normal Musculoskeletal: Positive: Strength Intact, ROM Intact, No Edema Neurological Exam: Normal Psychological Exam: Normal Skin Exam: Normal Triage Information Reviewed: Yes Vital Signs: Initial Vital Signs Temp 98.3 F 08/15/19 09:58 Pulse 101 08/15/19 09:58 Resp 18 08/15/19 09:58 BP 137/70 08/15/19 09:58 Pulse Ox 96 08/15/19 09:58 Respiratory Course/Dx - Course Course Of Treatment: 69 y/o male presents to the urgent care accompany by c/o productive cough w / yellow sputum for the past 4 days. Pt states symptoms started w/ nasal congestion and moderated PND. Now unable to sleep at night due to cough. Last night the power was out for a few hrs and his house was very cold and he developed mild wheezing. Pt states chills, but denies fever, He has been taken Mucinex PO. He has PMHX of DM type II and revently Dx w/ RA about 1 months ago and on Methotraxate PO w/ prednisone PO. Now cough is productive w/ yellowish sputum. Pt use to smoke in the past. Pt denies fever, SOB, chest pain, abdominal pain, N/V/d. He has taken Mucinex PO to alleviate cough w/o any improvement. Hx obtained. Pt w/ B/L posterior upper lungs w/ mild wheezing and rhonchi. O2Sat:96. Rapid influenza A&b: negative. Pt given at the clinic Albuterol Neb treatment by the nurse. Pt tolerated well treatment and b/L lungs cleared. Chest X-ray Ordered to r/o pneumonia. Impression:No acute pulmonary disease observed. Pt w/ Acute bronchitis and mild wheezing. Pt educated on symptomatic treatment and Pt Rx Rx Albuterol inhaler, flonase nasal spray and Tessalon tabs PO to alleviate cough and wheezing. D/C instructions explained. Pt understood and agreed w/ plan of care . Pt left the clinic ambulating and feeling better. - Differential Dx/Diagnosis Differential Diagnosis/HQI/PQRI: Asthma, Bronchitis, Influenza, Laryngitis, Lower Resp Infection, Sinusitis, Other - pneumonia Provider Diagnosis: Acute bronchitis, Wheezing Discharge ED - Sign-Out/Discharge Documenting (check all that apply): Patient Departure - d/C home All imaging exams completed and their final reports reviewed: Yes - Discharge Plan Condition: Stable Disposition: HOME Prescriptions: Albuterol HFA INHALER* [Ventolin HFA Inhaler*] 1 - 2 puff INH Q6H PRN #1 mdi PRN Reason: wheezing/bronchospasm Benzonatate CAP* [Tessalon 100 MG CAP*] 100 mg PO TID PRN #21 cap PRN Reason: Cough Fluticasone NASAL SPRAY 50MCG* [Flonase NASAL SPRAY 50MCG*] 2 spray BOTH NARES DAILY #1 btl Patient Education Materials: Acute Bronchitis (ED) Referrals: Avery Mays MD [Primary Care Provider] - 3 Days Additional Instructions: 1-Use the albuterol inhaler to alleviate cough and wheezing as directed . Increase fluid intake, rest and eat well. 2- Please increase fluid intake and rest. Take tessalon tabs PO to alleviate cough. Use a humidifier at night 3-Use Flonase as directed to help drain fluid. Also buy saline drops to clear sinuses 4- If symptoms do not improve or worsen or your develop SOB with fever and severe wheezing please go immediately to the ER further evaluation and treatment. 5- F/u with your PCP in 3 days if symptoms do not improve for further management - Billing Disposition and Condition Condition: STABLE Disposition: Home
[2019-08-15 10:28] LABS: Influenza A Molecular Negative (Negative); Influenza B Molecular Negative (Negative)
[2019-08-15] MEDS ORDERED: Albuterol/Ipratropium NEB.SOL* Albuterol 2.5 MG/Ipratropium 0.5 MG 3 ML INH ONE (10:38)
== END 2019-08-15 11:29 | disposition home or self-care (01) ==
LOC: UCEAST 09:06
DX: J20.9 Acute bronchitis, unspecified (principal); R06.2 Wheezing; I10 Essential (primary) hypertension; E11.9 Type 2 diabetes mellitus without complications; Z87.891 Personal history of nicotine dependence; Z88.0 Allergy status to penicillin
CPT/HCPCS: 71046; 99212; A9270-GY; G0463

== ENCOUNTER 2020-04-27 03:29 | Inpatient (IN) ==
[2020-04-27 05:04] LABS: ABS Basophils 0.1 10^3/ul (0-0.2); ABS Lymphocytes 1.1 10^3/ul (1.0-4.8); ABS Monocytes 0.6 10^3/ul (0-0.8); ABS Neutrophils 5.9 10^3/ul (1.5-7.7); Eosinophil % 0.5 %; Hematocrit 37 % (42-52); Lymphocyte % 13.9 %; Mean Corpuscular HGB Conc 33 g/dL (31-36); Mean Corpuscular Hemoglobin 31 pg (27-31); Mean Corpuscular Volume 93 fL (80-94); Platelet Count 254 10^3/uL (150-450); Red Blood Count 3.93 10^6 /uL (4.18-5.48); Red Cell Distribution Width 16 % (10-15); White Blood Count 7.7 10^3/uL (3.5-10.8)
[2020-04-27 05:17] LABS: INR 1.39 (0.82-1.09)
[2020-04-27 05:22] LABS: ALT 21 U/L (7-52); Albumin 3.9 g/dL (3.2-5.2); Albumin/Globulin Ratio 1.3 (1-3); Alkaline Phosphatase 75 U/L (34-104); BUN/Creatinine Ratio 22.4 (8-20); Blood Urea Nitrogen 60 mg/dL (6-24); CO2 Carbon Dioxide 25 mmol/L (22-32); Calcium 9.2 mg/dL (8.6-10.3); Chloride 102 mmol/L (101-111); EGFR African American 28.7 (>60); EGFR Non-African American 23.7 (>60); Globulin 2.9 g/dL (2-4); Glucose 191 mg/dL (70-100); Sodium 140 mmol/L (135-145); Total Protein 6.8 g/dL (6.4-8.9)
[2020-04-27 05:36] LABS: Anion Gap 13 mmol/L (2-11); Troponin I 0.05 ng/mL (<0.03)
[2020-04-27] MEDS ORDERED: Lactulose 30 ml UDC PO ONE (06:15)
[2020-04-27] MEDS ORDERED: Dextrose 50% Syringe 50 ml 25 GM/50 ML SYRINGE IV PUSH PRN (09:40)
[2020-04-27 10:20] LABS: Potassium 3.9 mmol/L (3.5-5.0); Troponin I 0.05 ng/mL (<0.03)
[2020-04-27] MEDS: Heparin 5000 UNITS/ML 1 mL VIAL SUBCUT SCH ×2 (13:58→23:29)
[2020-04-27 14:00] LABS: Troponin I 0.05 ng/mL (<0.03)
[2020-04-27] MEDS ORDERED: Furosemide 40 mg/4 ml IV VIAL IV ONE (15:33)
[2020-04-27] MEDS ORDERED: Bumetanide IV 0.25 MG/ML 4 ml VIAL (1 mg) SLOW PUSH ONE (15:59)
[2020-04-27] MEDS ORDERED: Furosemide 40 mg/4 ml IV VIAL IV SCH (17:00)
[2020-04-27 17:41] LABS: Urine Appearance Clear; Urine Bilirubin Negative (Negative); Urine Blood Negative (Negative); Urine Color Yellow; Urine Glucose Negative (Negative); Urine Ketones Negative (Negative); Urine Nitrite Negative (Negative); Urine Protein Negative (Negative); Urine Specific Gravity 1.012 (1.010-1.030); Urine Urobilinogen Negative (Negative)
[2020-04-27 17:45] LABS: UR Microalbumin (mg/L) 31.5 mg/L; Urine Creatinine 113.79 mg/dL; Urine Creatinine Concentration 113.79 mg/dL; Urine Microalbumin/Creatinine 27.6 (<31)
[2020-04-27] MEDS ORDERED: Lorazepam PYXIS KEY PRN (19:24)
[2020-04-27] MEDS ORDERED: LORazepam 2 mg VIAL 1 ml IV PUSH ONE (19:24)
[2020-04-27] MEDS ORDERED: Haloperidol 5 mg/ml SDV IV/IM 5 MG/ML AMP IM ONE ×2 (20:11→21:07)
[2020-04-27 21:06] LABS: C Reactive Protein 7.42 mg/L (<8.01)
[2020-04-27] MEDS ORDERED: Haloperidol 5 mg/ml SDV IV/IM 5 MG/ML AMP ONE (21:08)
[2020-04-28] MEDS ORDERED: Lorazepam PYXIS KEY PRN ×3 (05:43→15:37)
[2020-04-28] MEDS ORDERED: LORazepam 2 mg VIAL 1 ml IM ONE (05:43)
[2020-04-28] MEDS ORDERED: LORazepam 2 mg VIAL 1 ml ONE ×3 (05:48→21:38)
[2020-04-28] MEDS: Heparin 5000 UNITS/ML 1 mL VIAL SUBCUT SCH ×2 (05:53→22:21)
[2020-04-28] MEDS ORDERED: Furosemide 40 mg/4 ml IV VIAL IV ONE (09:00)
[2020-04-28] MEDS ORDERED: Bumetanide IV 0.25 MG/ML 4 ml VIAL (1 mg) SLOW PUSH SCH ×2 (09:00→21:00)
[2020-04-28 09:24] LABS: BUN/Creatinine Ratio 26.5 (8-20); Calcium 9.3 mg/dL (8.6-10.3); EGFR African American 36.2 (>60); EGFR Non-African American 29.9 (>60); Potassium 3.1 mmol/L (3.5-5.0)
[2020-04-28] MEDS ORDERED: LORazepam 2 mg VIAL 1 ml IV PUSH ONE (09:43)
[2020-04-28] MEDS ORDERED: KCL 20 MEQ/100 ML IVPREMIX 20 MEQ/100 ML BAG ONE ×3 (11:53→17:54)
[2020-04-28] MEDS: KCL 20 MEQ/100 ML IVPREMIX 20 MEQ/100 ML BAG IV SCH ×3 (11:57→17:55)
[2020-04-28 13:41] LABS: Albumin 3.9 g/dL (3.2-5.2); Albumin/Globulin Ratio 1.3 (1-3); Globulin 2.9 g/dL (2-4); Indirect Bilirubin 2.7 mg/dL (0.3-1.0); Total Bilirubin 3.1 mg/dL (0.2-1.0); Total Protein 6.8 g/dL (6.4-8.9)
[2020-04-28] MEDS ORDERED: LORazepam 2 mg VIAL 1 ml IV PUSH PRN (15:37)
[2020-04-28] MEDS ORDERED: Haloperidol 5 mg/ml SDV IV/IM 5 MG/ML AMP IM ONE (15:59)
[2020-04-28] MEDS ORDERED: Haloperidol 5 mg/ml SDV IV/IM 5 MG/ML AMP ONE (16:15)
[2020-04-28] MEDS: Senna TAB 8.6 mg TAB PO SCH (22:21)
[2020-04-29] MEDS: Heparin 5000 UNITS/ML 1 mL VIAL SUBCUT SCH ×3 (04:23→20:13)
[2020-04-29 07:09] LABS: ABS Basophils 0.1 10^3/ul (0-0.2); ABS Eosinophils 0.2 10^3/ul (0-0.6); ABS Monocytes 0.6 10^3/ul (0-0.8); ABS Neutrophils 4.5 10^3/ul (1.5-7.7); Eosinophil % 3.8 %; Hematocrit 39 % (42-52); Lymphocyte % 15.8 %; Mean Corpuscular HGB Conc 33 g/dL (31-36); Mean Corpuscular Hemoglobin 31 pg (27-31); Mean Corpuscular Volume 93 fL (80-94); Mean Platelet Volume 7.4 fL (7.4-10.4); Platelet Count 267 10^3/uL (150-450); Red Blood Count 4.24 10^6 /uL (4.18-5.48); Red Cell Distribution Width 16 % (10-15); White Blood Count 6.5 10^3/uL (3.5-10.8)
[2020-04-29 07:27] LABS: BUN/Creatinine Ratio 25.9 (8-20); Calcium 9.5 mg/dL (8.6-10.3); EGFR African American 43.9 (>60); EGFR Non-African American 36.3 (>60)
[2020-04-29] MEDS ORDERED: Potassium Chlor 20 meq TAB.ER PO ONE (07:29)
[2020-04-29] MEDS ORDERED: Senna TAB 8.6 mg TAB ONE (09:36)
[2020-04-29] MEDS: Senna TAB 8.6 mg TAB PO SCH ×2 (09:44→20:13)
[2020-04-29] MEDS ORDERED: Magnesium Hydroxide LIQ 30 ML UDC PO ONE (10:42)
[2020-04-29] MEDS: Potassium Chlor 20 meq TAB.ER PO SCH (10:55)
[2020-04-30] MEDS: Heparin 5000 UNITS/ML 1 mL VIAL SUBCUT SCH ×3 (06:25→22:34)
[2020-04-30 06:59] LABS: ABS Basophils 0.1 10^3/ul (0-0.2); ABS Eosinophils 0.4 10^3/ul (0-0.6); ABS Lymphocytes 1.5 10^3/ul (1.0-4.8); ABS Monocytes 0.7 10^3/ul (0-0.8); ABS Neutrophils 4.3 10^3/ul (1.5-7.7); Eosinophil % 5.5 %; Hematocrit 37 % (42-52); Hemoglobin 12.7 g/dL (14.0-18.0); Lymphocyte % 21.9 %; Mean Corpuscular HGB Conc 34 g/dL (31-36); Mean Corpuscular Hemoglobin 31 pg (27-31); Mean Corpuscular Volume 92 fL (80-94); Mean Platelet Volume 7.5 fL (7.4-10.4); Nucleated Red Blood Cells % 0.1; Platelet Count 265 10^3/uL (150-450); Red Blood Count 4.07 10^6 /uL (4.18-5.48); Red Cell Distribution Width 16 % (10-15)
[2020-04-30 07:18] LABS: Calcium 9.4 mg/dL (8.6-10.3); Potassium 3.4 mmol/L (3.5-5.0)
[2020-04-30] MEDS ORDERED: Potassium Chloride LIQUID 20 MEQ/15 ML LIQUID PO ONE (07:21)
[2020-04-30 07:24] LABS: BUN/Creatinine Ratio 23.8 (8-20); EGFR African American 42.9 (>60); EGFR Non-African American 35.4 (>60)
[2020-04-30] MEDS: Potassium Chlor 20 meq TAB.ER PO SCH (08:50)
[2020-04-30] MEDS: Senna TAB 8.6 mg TAB PO SCH ×2 (08:52→20:21)
[2020-04-30 11:56] LABS: Magnesium 1.9 mg/dL (1.9-2.7)
[2020-04-30] MEDS ORDERED: Lactulose 30 ml UDC PO ONE (15:12)
[2020-04-30] MEDS ORDERED: Bumetanide IV 0.25 MG/ML 4 ml VIAL (1 mg) SLOW PUSH ONE (15:13)
[2020-04-30] MEDS ORDERED: Magnesium CITRATE LIQ 300 ML BTL PO ONE (15:30)
[2020-04-30] MEDS ORDERED: LORazepam 2 mg VIAL 1 ml IM PRN (21:09)
[2020-04-30] MEDS ORDERED: Lorazepam PYXIS KEY PRN (21:09)
[2020-05-01] MEDS: Heparin 5000 UNITS/ML 1 mL VIAL SUBCUT SCH ×3 (06:09→20:45)
[2020-05-01] MEDS: Senna TAB 8.6 mg TAB PO SCH ×2 (08:22→20:45)
[2020-05-01] MEDS: Potassium Chlor 20 meq TAB.ER PO SCH (08:22)
[2020-05-01] MEDS ORDERED: Magnesium Hydroxide LIQ 30 ML UDC PO ONE (16:03)
[2020-05-01] MEDS ORDERED: Lactulose 30 ml UDC PO ONE (16:04)
[2020-05-01] MEDS ORDERED: Bumetanide IV 0.25 MG/ML 4 ml VIAL (1 mg) SLOW PUSH ONE (16:05)
[2020-05-02] MEDS: Heparin 5000 UNITS/ML 1 mL VIAL SUBCUT SCH ×3 (05:23→20:26)
[2020-05-02 06:19] LABS: ABS Basophils 0.1 10^3/ul (0-0.2); ABS Eosinophils 0.3 10^3/ul (0-0.6); ABS Lymphocytes 1.5 10^3/ul (1.0-4.8); ABS Monocytes 0.5 10^3/ul (0-0.8); ABS Neutrophils 2.9 10^3/ul (1.5-7.7); Eosinophil % 6.5 %; Hematocrit 38 % (42-52); Hemoglobin 12.6 g/dL (14.0-18.0); Lymphocyte % 28.3 %; Mean Corpuscular HGB Conc 34 g/dL (31-36); Mean Corpuscular Hemoglobin 31 pg (27-31); Mean Corpuscular Volume 92 fL (80-94); Mean Platelet Volume 7.3 fL (7.4-10.4); Nucleated Red Blood Cells % 0.1; Platelet Count 243 10^3/uL (150-450); Red Blood Count 4.08 10^6 /uL (4.18-5.48); Red Cell Distribution Width 16 % (10-15); White Blood Count 5.2 10^3/uL (3.5-10.8)
[2020-05-02 06:36] LABS: BUN/Creatinine Ratio 19.6 (8-20); Calcium 9.1 mg/dL (8.6-10.3); EGFR African American 42.9 (>60); EGFR Non-African American 35.4 (>60); Potassium 3.1 mmol/L (3.5-5.0)
[2020-05-02] MEDS ORDERED: Heparin 2 UNITS/ML 1000 mls 2,000 ML IV ONE (07:56)
[2020-05-02] MEDS ORDERED: nitroGLYCERIN DRIP 25,000 MCG/250 ML BTL ONE (07:56)
[2020-05-02] MEDS ORDERED: Lidocaine 1% VIAL 10 MG/ML VIAL ONE (07:56)
[2020-05-02] MEDS ORDERED: Potassium Chloride LIQUID 20 MEQ/15 ML LIQUID PO ONE (08:04)
[2020-05-02] MEDS ORDERED: NS 0.9% 1000 ml BAG 1,000 ML IV SCH (09:45)
[2020-05-02] MEDS: Potassium Chloride LIQUID 20 MEQ/15 ML LIQUID PO SCH ×2 (10:14→14:19)
[2020-05-02] MEDS: Potassium Chlor 20 meq TAB.ER PO SCH (11:32)
[2020-05-02] MEDS: Senna TAB 8.6 mg TAB PO SCH ×2 (11:32→20:26)
[2020-05-02] MEDS ORDERED: Heparin 1,000 UNIT/ML 10 ml (10,000 UNITS) CATHLAB/DIALYSIS ONE (11:46)
[2020-05-02] MEDS ORDERED: VERAPAMIL 2.5 MG/ML 2 ML VIAL ** 5 mg/2 ml ONE (11:46)
[2020-05-02] MEDS ORDERED: fentaNYL 100 mcg/2 ml 50 MCG/ML VIAL ONE (11:47)
[2020-05-02] MEDS ORDERED: Iodixanol 320 (CONTRAST) 100 ML SDV ONE (11:47)
[2020-05-02] MEDS ORDERED: Midazolam 5 mg/5 ml VIAL 1 mg/ml 5 ml VIAL (5 mg) ONE (11:47)
[2020-05-02 19:55] VITALS: BP 95/61
== END 2020-05-02 23:20 | disposition home or self-care (01) | DRG 192 ==
LOC: ED 03:29 → MEDTELE 09:36
PROVIDERS: ADMIT Internal Medicine; ATTEND Internal Medicine